=== PATIENT | female | born 1985 | race Caucasian/White ===

== ENCOUNTER 2018-02-23 11:00 | Emergency (ER) | payer OTHER ==
--- NOTE | 2018-02-23 11:22 | ERPHSYRPT ---
- History of Present Illness Time Seen by Provider: 02/23/18 11:17 Source: patient Patient Subjective Stated Complaint: Pt states "I stepped down wrong and fell and put all my weight on my toes on my right foot and now the top of my foot and my arch hurts." Triage Nursing Assessment: Pt alert and oriented X 3, skin pwd. Pt ambulates with a limp. Pt right foot slightly swollen, no bruising noted. CSM X 4 Physician History: The patient is a 32-year-old female with mother complaining that she lost her balance at the top of the steps last night causing her to bend the toes of her right foot back. This morning her foot his right painful. It is hard for her to walk on it. Foot is also swollen. Past medical history is unremarkable. Occurred: yesterday Reason for Fall: tripped, fell from standing pos Injuries/Pain Location: lower extremity (right foot) Loss of Consciousness: no loss of consciousness Quality: aching Severity of Pain-Max: moderate Severity of Pain-Current: moderate Modifying Factors: Improves With: pain medication (ASA) Associated Symptoms (Fall): extremity injury, trouble walking Allergies/Adverse Reactions: No Known Drug Allergies Allergy (Unverified 02/23/18 11:11) Hx Tetanus, Diphtheria Vaccination/Date Given: Yes Hx Influenza Vaccination/Date Given: No Hx Pneumococcal Vaccination/Date Given: No Immunizations Up to Date: Yes - Review of Systems Constitutional: No Fever, No Chills Eyes: No Symptoms Ears, Nose, & Throat: No Symptoms Respiratory: No Cough, No Dyspnea Cardiac: No Chest Pain, No Edema, No Syncope Abdominal/Gastrointestinal: No Symptoms Genitourinary Symptoms: No Dysuria Musculoskeletal: Fall, Injury Skin: No Rash Neurological: No Dizziness, No Focal Weakness, No Sensory Changes Psychological: No Symptoms Endocrine: No Symptoms Hematologic/Lymphatic: No Symptoms Immunological/Allergic: No Symptoms All Other Systems: Reviewed and Negative - Past Medical History Pertinent Past Medical History: No - Past Surgical History Past Surgical History: Yes Other Surgical History: tubal - Social History Smoking Status: Current every day smoker How long have you smoked: 17 years Exposure to second hand smoke: Yes Drug Use: none Patient Lives Alone: No - Female History Hx Last Menstrual Period: 02/06/2018 Hx Now: No - Nursing Vital Signs Nursing Vital Signs: Initial Vital Signs Temperature 98.1 F 02/23/18 11:05 Pulse Rate 90 02/23/18 11:05 Respiratory Rate 18 02/23/18 11:05 Blood Pressure 156/107 02/23/18 11:05 O2 Sat by Pulse Oximetry 99 02/23/18 11:05 Pain Scale Pain Intensity 6 - Amy Coma Score Best Eye Response ([place]): (4) open spontaneously Best Verbal Response (Amy): (5) oriented Best Motor Response ([place]): (6) obeys commands Amy Total: 15 - Physical Exam General Appearance: no apparent distress, alert Head Injury: no evidence of injury Eye Exam: PERRL/EOMI ENT Exam: airway nml Neck Exam: normal inspection, No tenderness Respiratory/Chest Exam: normal breath sounds, No chest tenderness, No respiratory distress Cardiovascular Exam: normal heart sounds, regular rate/rhythm Gastrointestinal Exam: soft, No tenderness, No distention, No guarding, No ecchymosis Rectal Exam: not done Back Exam: normal inspection, No vertebral tenderness Extremity Exam: swelling (Examination the right foot: The right for foot and midfoot is swollen. There is tenderness to palpation in the right forefoot. Extension and flexion of the toes elicits a pain response. The patient does not want to put weight on it to walk.) Neurologic Exam: alert, oriented x 3, cooperative, sensation nml, No motor deficits Skin Exam: normal color, warm, dry SpO2 Interpretation: normal SpO2: 99 Oxygen Delivery: Room Air - CT Exams Right Lower Extremity CT Interpretation: Tele-radiologist Report (per Dr Gutierrez), Fracture (fractures of 1,2,3,4 right metatarsals.) Ordered Tests: Active Orders 24 hr Category Date Time Status Cold Application STAT Care 02/23/18 11:09 Active FOOT (MINIMUM 3 VIEWS) Stat Exams 02/23/18 11:25 Taken LOWER EXTREMITY WO CONTRAST [CT] Stat Exams 02/23/18 11:55 Taken Medication Summary Discontinued Medications Generic Name Dose Route Start Last Admin Trade Name Freq PRN Reason Stop Dose Admin Ketorolac Tromethamine 60 mg 02/23/18 11:25 02/23/18 11:32 Toradol 30 Mg Injection IM 02/23/18 11:26 60 mg STAT ONE Administration Ketorolac Tromethamine Confirm 02/23/18 11:29 Toradol 30 Mg Injection Administered 02/23/18 11:30 Dose 60 mg .ROUTE .STK-MED ONE Ondansetron HCl 4 mg 02/23/18 11:25 02/23/18 11:32 Zofran Odt 4 Mg PO 02/23/18 11:26 4 mg STAT ONE Administration Ondansetron HCl Confirm 02/23/18 11:29 Zofran Odt 4 Mg Administered 02/23/18 11:30 Dose 4 mg .ROUTE .STK-MED ONE - Progress Progress: improved Progress Note: 02/23/18 12:53 given toradol 60 mg IM. Counseled pt/family regarding: diagnosis, need for follow-up (with Dr Chung. ), rad results - Departure Time of Disposition: 12:54 Departure Disposition: Home Clinical Impression: Multiple fractures of right foot Condition: Stable Critical Care Time: No Additional Instructions: You have multiple fractures of the long bones in your right foot. Four of the 5 long bones have a fracture. You were given Toradol 60 mg by IM in the ER. Take [place] one tablet every 4-6 hours as needed for pain. Take naproxen 500 mg every 12 hours as needed for pain. Elevate your foot as much as possible. Apply ice to the foot as needed. You were placed in a boot. Use crutches at all times until released. Follow-up with Dr. Tad Chung at [phone]. Call his office on Sunday. Prescriptions: Hydrocodone/APAP 5/325 [[place] 5/325 mg] 1 each PO Q4-6HPRN PRN #12 tablet MDD 6 PRN Reason: Pain Naproxen 500 mg PO BID PRN #30 tablet
[2018-02-23] MEDS ORDERED: TORAdol 30 mg Injection IM ONE (11:25)
[2018-02-23] MEDS ORDERED: ZOFRAN ODT 4 MG PO ONE (11:25)
[2018-02-23] MEDS ORDERED: TORAdol 30 mg Injection ONE (11:29)
[2018-02-23] MEDS ORDERED: ZOFRAN ODT 4 MG ONE (11:29)
[2018-02-23 12:43] VITALS: O2SAT 99
[2018-02-23 13:17] VITALS: BP 129/84; PULSE 76
--- NOTE | 2018-02-23 15:39 | XRAY ---
Indication: Pain and swelling following injury. Multiple contiguous axial images obtained through the right foot. Two-dimensional sagittal and coronal reformatted images obtained. Comparison: None Nondisplaced acute fractures seen of the proximal shafts of the 2nd/3rd/4th metatarsals with mild soft tissue swelling. Additional nondisplaced acute fractures seen of the base of the 1st and 4th metatarsals with intra-articular extension. No suspicious bone lesions or radiopaque foreign body. Right ankle mortise anatomic. Remaining visualized noncontrasted soft tissues unremarkable. Impression: Nondisplaced 1st/2nd/3rd/4th metatarsal fractures as detailed. Comment: Preliminary interpretation was made by VR. No discrepancy. CTDI 37.17
--- NOTE | 2018-02-23 15:41 | XRAY ---
Indication: Pain and swelling following injury. Comparison: None 3 nonweightbearing views of the right foot demonstrates nondisplaced acute fractures involving the base of the 2/3/4 metatarsals with mild soft tissue swelling. No other bony, articular, or soft tissue abnormalities.
== END 2018-02-23 13:32 | disposition home or self-care (01) ==
LOC: ED 11:00
DX: S92.321A Displaced fracture of second metatarsal bone, right foot, initial encounter for closed fracture (principal); S92.331A Displaced fracture of third metatarsal bone, right foot, initial encounter for closed fracture; S92.341A Displaced fracture of fourth metatarsal bone, right foot, initial encounter for closed fracture; X50.1XXA Overexertion from prolonged static or awkward postures, initial encounter; Y93.01 Activity, walking, marching and hiking; Y92.009 Unspecified place in unspecified non-institutional (private) residence as the place of occurrence of the external cause
CPT/HCPCS: 73630; 73700; 96372; 99284; J1885; Q0162

== ENCOUNTER 2020-09-06 13:47 | Emergency (ER) | payer MEDICAID, OTHER ==
[2020-09-06 15:28] LABS: Absolute Neutrophil Ct (ANC) 5.42 (1.4-6.9); BASOPHIL % 0.2 % (0.0-0.4); Basophil (Absolute #) 0.02 (0-0.4); Eosinophil % 1.9 % (0.00-5.0); Eosinophil (Absolute #) 0.18 (0-0.5); Hematocrit 38.2 % (35-47); Hemoglobin 12.3 gm/dl (12.0-16.0); Lymphocyte (Absolute #) 2.98 (1.0-4.6); Lymphocytes % 32.1 % (24.0-44.0); Mean Cell Volume 97.7 fl (78-100); Mean Corpuscular Hemoglobin 31.5 pg (26-32); Mean Corpuscular Hgb Concent. 32.2 g/dl (32-36); Mean Platelet Volume 11.3 fl (7.5-11.0); Monocyte (Absolute #) 0.67 (0.0-1.3); Monocytes % 7.2 % (0.0-12.0); Neutrophil % 58.6 % (36.0-66.0); Platelet Count 196 K/mm3 (150-450); Red Blood Count 3.91 M/mm3 (4.1-5.4); Red Cell Distribution Width 12.1 % (11.5-14.0); White Blood Count 9.3 K/mm3 (4.0-10.5)
[2020-09-06 15:30] LABS: Appearance SLIGHTLY CLOUDY (CLEAR); Bilirubin NEGATIVE (NEGATIVE); Blood NEGATIVE Ery/ul (0-5); Epithelial Cells RARE /HPF (FEW); Glucose NEGATIVE (NEGATIVE); Ketones NEGATIVE (NEGATIVE); Leukocyte Esterase NEGATIVE (NEGATIVE); Mucus SLIGHT /HPF (NEGATIVE); Nitrite NEGATIVE (NEGATIVE); Protein,Urine Dip NEGATIVE (Negative); Specific Gravity 1.018 (1.005-1.025); Urobilinogen NEGATIVE mg/dL (0-1)
[2020-09-06 15:47] LABS: ALBUMIN 4.1 g/dL (3.5-5.0); ALKALINE PHOSPHATASE 53 U/L (38-126); BLOOD UREA NITROGEN 7 mg/dL (7-17); CHLORIDE 106 mmol/L (98-107); Carbon Dioxide 26 mmol/L (22-30); Creatinine 1 0.51 mg/dL (0.52-1.04); EST GLOMERULAR FILTRATION RATE > 60.0 ML/MIN; Glucose 91 mg/dL (74-106); Potassium 3.6 mmol/L (3.5-5.1); SGOT/AST 23 U/L (14-36); SGPT/ALT 17 U/L (0-35); SODIUM 137 mmol/L (137-145); Total Protein 6.7 g/dL (6.3-8.2)
[2020-09-06] MEDS ORDERED: TORAdol 30 mg Injection IV ONE (18:12)
[2020-09-06] MEDS ORDERED: TORAdol 30 mg Injection ONE (18:14)
--- NOTE | 2020-09-06 18:18 | ERPHSYRPT ---
- History of Present Illness Historian: patient Patient Subjective Stated Complaint: Hip pain Triage Nursing Assessment: Patient ambulated back to ED and tranferred self to bed. Patient A+O x3. Patient's skin pink ,warm and dry. Patient complains of left sided hip pain that radiates into groin area 8/10. Patient denies injury or trauma. Left leg noted to be shorter than right. Patient states the pain has been for 5 weeks but has gotten a lot worse today. Physician History: 35 yo wf w L hip/L inguinal pain x 5wks. Pain is 7/10 and worse w wgt bearing. Pt denies trauma/dysuria/hematuria//N/V/D/vag bleeding/vag dc/fever. Timing/Duration: other (5 wks) Activities at Onset: none Quality: aching Abdominal Pain Onset Location: other (L groin/L wrist) Pain Radiation: no radiation Severity of Pain-Max: moderate Severity of Pain-Current: moderate Modifying Factors: Improves With: walking Associated Symptoms: No back, No chest pain, No diaphoresis, No diarrhea, No fever/chills, No fatigue, No headache, No heartburn, No loss of appetite, No nausea, No neck pain, No rash, No shortness of breath, No syncope Previous symptoms: same symptoms as today Allergies/Adverse Reactions: No Known Drug Allergies Allergy (Verified 09/06/20 14:19) Hx Tetanus, Diphtheria Vaccination/Date Given: Yes Hx Influenza Vaccination/Date Given: No Hx Pneumococcal Vaccination/Date Given: No Immunizations Up to Date: Yes Travel Risk - International Travel Have you traveled outside of the country in past 3 weeks: No - Coronavirus Screening Are you exhibiting any of the following symptoms?: No Close contact with a COVID-19 positive Pt in past 14-21 Days: No - Vaccine Status Have you recieved a Covid-19 vaccination: No - Review of Systems Constitutional: No Symptoms Eyes: No Symptoms Ears, Nose, & Throat: No Symptoms Respiratory: No Symptoms Cardiac: No Symptoms, Orthopnea Genitourinary Symptoms: No Symptoms Skin: No Symptoms Neurological: No Symptoms Psychological: No Symptoms Endocrine: No Symptoms Hematologic/Lymphatic: No Symptoms Immunological/Allergic: No Symptoms - Past Medical History Pertinent Past Medical History: No - Past Surgical History Past Surgical History: Yes Other Surgical History: tubal - Social History Smoking Status: Current every day smoker How long have you smoked: 17 years Exposure to second hand smoke: Yes Drug Use: none Patient Lives Alone: No Significant Family History: no pertinent family hx - Female History Hx Last Menstrual Period: currently Hx Now: No - Nursing Vital Signs Nursing Vital Signs: Initial Vital Signs Temperature 98.0 F 09/06/20 14:23 Pulse Rate 82 09/06/20 14:23 Respiratory Rate 18 09/06/20 14:23 Blood Pressure 153/77 09/06/20 14:23 O2 Sat by Pulse Oximetry 100 09/06/20 14:23 Pain Scale Pain Intensity 5 Hypertensive - Physical Exam General Appearance: no apparent distress Eye Exam: PERRL/EOMI, eyes nml inspection Ears, Nose, Throat Exam: normal ENT inspection, TMs normal, pharynx normal, moist mucous membranes Neck Exam: normal inspection, non-tender, supple, full range of motion, No meningismus, No mass, No Brudzinski, No Kernig's Respiratory Exam: normal breath sounds, lungs clear, airway intact, No respiratory distress Cardiovascular Exam: regular rate/rhythm, normal heart sounds, normal peripheral pulses, No murmur Gastrointestinal/Abdomen Exam: soft, normal bowel sounds, No tenderness, No distention Pelvic Exam: not done Back Exam: normal inspection, normal range of motion, No CVA tenderness, No vertebral tenderness Extremity Exam: other (L inguinal/L hip ttp) Neurologic Exam: alert, oriented x 3, cooperative, director educational radio II-XII nml as tested, normal mood/affect, sensation nml Skin Exam: normal color, warm, dry, No rash Lymphatic Exam: No adenopathy SpO2 Interpretation: normal SpO2: 100 O2 Delivery: Room Air - Course Nursing assessment & vital signs reviewed: Yes - CT Exams Abdomen/Pelvis CT Interpretation: Discussed w/radiologist (L ovarian cyst/prominent L paruterine vessels) Ordered Tests: Active Orders 24 hr Category Date Time Status PELVIS WITH CONTRAST [CT] Stat Exams 09/06/20 17:27 Taken CBC W DIFF Stat Lab 09/06/20 14:59 Completed CMP Stat Lab 09/06/20 15:18 Completed HCG QUALITATIVE,SERUM Stat Lab 09/06/20 15:18 Completed UA W/RFX UR CULTURE Stat Lab 09/06/20 15:20 Completed Medication Summary Discontinued Medications Generic Name Dose Route Start Last Admin Trade Name Freq PRN Reason Stop Dose Admin Ketorolac Tromethamine 30 mg 09/06/20 18:12 09/06/20 18:15 Toradol 30 Mg Injection IV 09/06/20 18:13 30 mg STAT ONE Administration Ketorolac Tromethamine Confirm 09/06/20 18:14 Toradol 30 Mg Injection Administered 09/06/20 18:15 Dose 30 mg .ROUTE .STK-MED ONE Lab/Rad Data: Laboratory Result Diagrams 09/06/20 14:59 09/06/20 15:18 Laboratory Results 09/06/20 09/06/20 09/06/20 Range/Units 15:20 15:18 15:18 WBC (4.0-10.5) K/mm3 RBC (4.1-5.4) M/mm3 Hgb (12.0-16.0) gm/dl Hct (35-47) % MCV (78-100) fl MCH (26-32) pg MCHC (32-36) g/dl RDW (11.5-14.0) % Plt Count (150-450) K/mm3 MPV (7.5-11.0) fl Gran % (36.0-66.0) % Eos # (Auto) (0-0.5) Absolute Lymphs (auto) (1.0-4.6) Absolute Monos (auto) (0.0-1.3) Lymphocytes % (24.0-44.0) % Monocytes % (0.0-12.0) % Eosinophils % (0.00-5.0) % Basophils % (0.0-0.4) % Absolute Granulocytes (1.4-6.9) Basophils # (0-0.4) Sodium 137 (137-145) mmol/L Potassium 3.6 (3.5-5.1) mmol/L Chloride 106 (98-107) mmol/L Carbon Dioxide 26 (22-30) mmol/L Anion Gap 9.0 (5-15) MEQ/L BUN 7 (7-17) mg/dL Creatinine 0.51 L (0.52-1.04) mg/dL Estimated GFR > 60.0 ML/MIN Glucose 91 (74-106) mg/dL Calcium 9.0 (8.4-10.2) mg/dL Total Bilirubin 0.20 (0.2-1.3) mg/dL AST 23 (14-36) U/L ALT 17 (0-35) U/L Alkaline Phosphatase 53 (38-126) U/L Serum Total Protein 6.7 (6.3-8.2) g/dL Albumin 4.1 (3.5-5.0) g/dL Serum , Qual NEGATIVE (Negative) Urine Color YELLOW (YELLOW) Urine Appearance SLIGHTLY CLOUDY (CLEAR) Urine pH 5.0 (5-6) Ur Specific [place] 1.018 (1.005-1.025) Urine Protein NEGATIVE (Negative) Urine Ketones NEGATIVE (NEGATIVE) Urine Blood NEGATIVE (0-5) [place]/ul Urine Nitrite NEGATIVE (NEGATIVE) Urine Bilirubin NEGATIVE (NEGATIVE) Urine Urobilinogen NEGATIVE (0-1) mg/dL Ur Leukocyte Esterase NEGATIVE (NEGATIVE) Urine WBC (Auto) NONE (0-5) /HPF Urine RBC (Auto) NONE (0-2) /HPF U Epithel Cells (Auto) RARE (FEW) /HPF Urine Bacteria (Auto) NONE (NEGATIVE) /HPF Urine Mucus (Auto) SLIGHT (NEGATIVE) /HPF Urine Culture Reflexed NO (NO) Urine Glucose NEGATIVE (NEGATIVE) mg/dL 09/06/20 Range/Units 14:59 WBC 9.3 (4.0-10.5) K/mm3 RBC 3.91 L (4.1-5.4) M/mm3 Hgb 12.3 (12.0-16.0) gm/dl Hct 38.2 (35-47) % MCV 97.7 (78-100) fl MCH 31.5 (26-32) pg MCHC 32.2 (32-36) g/dl RDW 12.1 (11.5-14.0) % Plt Count 196 (150-450) K/mm3 MPV 11.3 H (7.5-11.0) fl Gran % 58.6 (36.0-66.0) % Eos # (Auto) 0.18 (0-0.5) Absolute Lymphs (auto) 2.98 (1.0-4.6) Absolute Monos (auto) 0.67 (0.0-1.3) Lymphocytes % 32.1 (24.0-44.0) % Monocytes % 7.2 (0.0-12.0) % Eosinophils % 1.9 (0.00-5.0) % Basophils % 0.2 (0.0-0.4) % Absolute Granulocytes 5.42 (1.4-6.9) Basophils # 0.02 (0-0.4) Sodium (137-145) mmol/L Potassium (3.5-5.1) mmol/L Chloride (98-107) mmol/L Carbon Dioxide (22-30) mmol/L Anion Gap (5-15) MEQ/L BUN (7-17) mg/dL Creatinine (0.52-1.04) mg/dL Estimated GFR ML/MIN Glucose (74-106) mg/dL Calcium (8.4-10.2) mg/dL Total Bilirubin (0.2-1.3) mg/dL AST (14-36) U/L ALT (0-35) U/L Alkaline Phosphatase (38-126) U/L Serum Total Protein (6.3-8.2) g/dL Albumin (3.5-5.0) g/dL Serum , Qual (Negative) Urine Color (YELLOW) Urine Appearance (CLEAR) Urine pH (5-6) Ur Specific [place] (1.005-1.025) Urine Protein (Negative) Urine Ketones (NEGATIVE) Urine Blood (0-5) [place]/ul Urine Nitrite (NEGATIVE) Urine Bilirubin (NEGATIVE) Urine Urobilinogen (0-1) mg/dL Ur Leukocyte Esterase (NEGATIVE) Urine WBC (Auto) (0-5) /HPF Urine RBC (Auto) (0-2) /HPF U Epithel Cells (Auto) (FEW) /HPF Urine Bacteria (Auto) (NEGATIVE) /HPF Urine Mucus (Auto) (NEGATIVE) /HPF Urine Culture Reflexed (NO) Urine Glucose (NEGATIVE) mg/dL - Progress Progress Note: 09/06/20 18:19 30mg IV Toradol 09/06/20 22:16 Pt advised to f/u w Ob-customer service specialist Counseled pt/family regarding: lab results, diagnosis, need for follow-up, rad results - Departure Departure Disposition: Home Clinical Impression: Ovarian cyst, Pelvic congestion syndrome Condition: Stable Critical Care Time: No Referrals: DOCTOR,NO FAMILY [Primary Care Provider] - Instructions: Ovarian Cyst (DC) Additional Instructions: Follow up with a ob-customer service specialist or family [place] as needed for pain Return to ER for increasing pain or temperature greater than 100.5 Prescriptions: Ketorolac Tromethamine [Toradol] 10 mg PO TID PRN #14 tablet PRN Reason: Pain
[2020-09-06 18:29] VITALS: BP 126/80; PULSE 73
[2020-09-06 22:17] VITALS: O2SAT 100
--- NOTE | 2020-09-07 08:33 | XRAY ---
Indication: Left hip/inguinal pain. Multiple contiguous axial images obtained through the pelvis only using 80 cc Isovue 370 contrast. Comparison: None Visualized bowel loops nonobstructed. No free fluid/air. Prominent uterus with tampon in situ. 1.7 cm left ovary cyst. Periuterine vessels are prominent bilaterally up to 1 cm and commonly associated with pelvic congestion syndrome. No free fluid/air. Visualized aortoiliac vessels normal. No pathologic pelvic or inguinal lymphadenopathy. Osseous structures intact with left L5 spondylolysis without spondylolisthesis. No ventral or inguinal hernias. Impression: 1. Prominent periuterine vessels. Rule out pelvic congestion syndrome. 2. Incidental tampon in situ, 1.7 cm dominant left ovary cyst, and L5 spondylolysis without spondylolisthesis.
== END 2020-09-06 18:34 | disposition home or self-care (01) ==
LOC: ED 13:47
DX: N83.209 Unspecified ovarian cyst, unspecified side (principal); N94.89 Other specified conditions associated with female genital organs and menstrual cycle
CPT/HCPCS: 36415; 72193; 80053; 81001; 81025; 85025; 96374; 99284; J1885

== ENCOUNTER 2022-12-03 13:24 | Emergency (ER) | payer MEDICAID ==
--- NOTE | 2022-12-03 14:24 | ERPHSYRPT ---
- History of Present Illness Time Seen by Provider: 12/03/22 14:24 Source: patient Exam Limitations: no limitations Physician History: This is a 37-year-old white female who presents with a 2 cm laceration between the fourth and fifth toes of the left foot. Patient suffered the laceration while in a bouncy house. Patient's tetanus status is not up-to-date. Timing/Duration: today Quality: painful Severity: mild (To moderate) Location: feet (Between the fourth and fifth digits of the left foot there is a laceration present) Allergies/Adverse Reactions: No Known Drug Allergies Allergy (Verified 12/03/22 14:31) Home Medications: No Reportable Medications [No Reported Medications] 12/03/22 [History] Hx Tetanus, Diphtheria Vaccination/Date Given: Yes Hx Influenza Vaccination/Date Given: No Hx Pneumococcal Vaccination/Date Given: No Travel Risk - International Travel Have you traveled outside of the country in past 3 weeks: No - Coronavirus Screening Are you exhibiting any of the following symptoms?: No Close contact with a COVID-19 positive Pt in past 14-21 Days: No - Vaccine Status Have you recieved a Covid-19 vaccination: No - Review of Systems Constitutional: No Symptoms Eyes: No Symptoms Ears, Nose, & Throat: No Symptoms Respiratory: No Symptoms Cardiac: No Symptoms Abdominal/Gastrointestinal: No Symptoms Genitourinary Symptoms: No Symptoms Musculoskeletal: Injury (Left foot injury between fourth and fifth digits of the left foot) Skin: Other (2 cm laceration in the webspace between the fourth and fifth digits of the left foot) Neurological: No Symptoms Psychological: No Symptoms Endocrine: No Symptoms Hematologic/Lymphatic: No Symptoms Immunological/Allergic: No Symptoms All Other Systems: Reviewed and Negative - Past Medical History Pertinent Past Medical History: No - Past Surgical History Past Surgical History: Yes Other Surgical History: tubal - Social History Smoking Status: Current every day smoker How long have you smoked: 17 years Exposure to second hand smoke: Yes Drug Use: none Patient Lives Alone: No Significant Family History: no pertinent family hx - Nursing Vital Signs Nursing Vital Signs: Initial Vital Signs Temperature 97.7 F 12/03/22 14:24 Pulse Rate 91 H 12/03/22 14:24 Respiratory Rate 18 12/03/22 14:24 Blood Pressure 145/95 12/03/22 14:24 O2 Sat by Pulse Oximetry 98 12/03/22 14:24 Pain Scale Pain Intensity 5 - Physical Exam General Appearance: no apparent distress, alert, anxiety Eye Exam: PERRL/EOMI, eyes nml inspection Ears, Nose, Throat Exam: normal ENT inspection, moist mucous membranes Neck Exam: normal inspection, non-tender, supple, full range of motion Respiratory Exam: airway intact, No chest tenderness, No respiratory distress Gastrointestinal/Abdomen Exam: No tenderness Extremity Exam: normal range of motion, pelvis stable, lacerations (2 cm laceration in the webspace between the left foot fourth and fifth digits) Neurologic Exam: alert, oriented x 3, cooperative, documentation coordinator II-XII nml as tested, normal mood/affect, nml cerebellar function, nml station & gait, sensation nml Skin Exam: laceration (See above) Lymphatic Exam: No adenopathy SpO2 Interpretation: normal O2 Delivery: Room Air Procedures - Laceration/Wound Repair Left Toe Time of Procedure: 16:00 Wound Location: Left, foot ([place] between the fourth and fifth digits) Wound Length (cm): 2 Wound's Depth, Shape: superficial, linear Wound Explored: clean (Wound explored to the base in a bloodless field and no foreign body noted) Irrigated: No Hibiclens Prep: Yes Anesthesia: 1% Lidocaine Volume Anesthetic (ccs): 3 Wound Repaired With: sutures Suture Size/Type: 3-0, prolene Layer Closure?: No Progress: 12/03/22 16:24 No complications and the patient tolerated procedure well. Thin layer of antibiotic ointment was placed overlying the repair site. - Course Nursing assessment & vital signs reviewed: Yes Ordered Tests: Medication Summary Discontinued Medications Generic Name Dose Route Start Last Admin Trade Name Bakari PRN Reason Stop Dose Admin Diphtheria/Tetanus/Acell Pertussis 0.5 ml 12/03/22 15:39 12/03/22 15:59 Tdap --Diph,Pertuss(Acell),Tet Vac/Pf 0.5 Ml Vial IM 12/03/22 15:40 0.5 ml .ONCE ONE Administration Diphtheria/Tetanus/Acell Pertussis Confirm 12/03/22 15:52 Tdap --Diph,Pertuss(Acell),Tet Vac/Pf 0.5 Ml Vial Administered 12/03/22 15:53 Dose 0.5 ml IM .[facility] - Progress Progress: improved Progress Note: 12/03/22 16:25 This patient's medical issue is 1 of low complexity. Level of complexity in the work-up performed is based on review of the patient's past medical history, review of the patient's medication list, review the patient's drug allergy list, history of present illness and physical findings on examination. There are no radiographic or laboratory studies necessary in this patient. The laceration site was repaired (see procedure note) Counseled pt/family regarding: diagnosis, need for follow-up Medical Desision Making - Independent Historian Additional History obtained from: Mother - Diagnostic Testing Diagnostic test were ordered, analyzed, and reviewed by me: No - Risk of complications Low Risk: Low risk of morbidity from additional dx testing or treatment - Departure Departure Disposition: Home Clinical Impression: Laceration of left foot Condition: Stable Critical Care Time: No Referrals: DOCTOR,NO FAMILY [Primary Care Provider] - Follow up/PCP as directed Additional Instructions: Use Tylenol and ibuprofen for pain control. Keep the laceration repair site dry until the evening of 12/04/2022. At that time you may rinse out the laceration repair site with soap and water daily. Blot dry use a health sciences department chair to dry the site and then placed a thin layer of antibiotic ointment on the repair site once daily. Suture removal in 8 to 10 days.
[2022-12-03 14:45] VITALS: PULSE 91; RESP 18; TEMP 97.7; O2SAT 98
[2022-12-03 15:39] VITALS: BP 130/80
[2022-12-03] MEDS ORDERED: Adacel Vial IM ONE ×2 (15:39→15:52)
== END 2022-12-03 16:33 | disposition home or self-care (01) ==
LOC: ED 13:24
DX: S91.312A Laceration without foreign body, left foot, initial encounter (principal); Z28.310 Unvaccinated for COVID-19; Z72.0 Tobacco use; Z23 Encounter for immunization
CPT/HCPCS: 12001; 90471; 90715; 99282